=== PATIENT | female | born 2000 | race Caucasian/White ===

== ENCOUNTER 2022-10-23 05:45 | Inpatient (IN) | payer BC ==
[2022-10-23] MEDS ORDERED: METHYLERGONOVINE 0.2 MG/ML 1 ML AMP IM PRN (06:01)
[2022-10-23] MEDS ORDERED: CARBOPROST TROMETHAMINE 250 MCG/ML 1 ML AMP IM PRN (06:01)
[2022-10-23] MEDS ORDERED: TRANEXAMIC ACID IN NACL,ISO-OS 1,000 MG in EMPTY BAG 1 BAG IV PRN (06:01)
[2022-10-23] MEDS ORDERED: LIDOCAINE 0.5% (PF) 5 MG/ML (50 ML SDV) SQ PRN (06:01)
[2022-10-23] MEDS ORDERED: miSOPROStoL 200 MCG TAB PO PRN (06:01)
[2022-10-23] MEDS ORDERED: OXYTOCIN 10 UNIT/ML 1 ML VIAL IM PRN (06:01)
[2022-10-23] MEDS ORDERED: TERBUTALINE 1 MG/ML VIAL SQ PRN (06:01)
[2022-10-23] MEDS ORDERED: OXYTOCIN 30 UNITS/500 ML NS 30 UNIT in SALINE 1 500ML.BAG IV SCH ×2 (06:01→12:03)
[2022-10-23 06:06] VITALS: RESP 16
[2022-10-23 06:10] LABS: Basophils % (A) 0 %; Eosinophils # (A) 0.2 k/uL (0-0.7); Eosinophils % (A) 2 %; Lymphocytes # (A) 1.7 k/uL (1.0-4.8); Lymphocytes % (A) 18 %; MCH 30.7 pg (25.0-35.0); MCHC 34.5 g/dL (31.0-37.0); MCV 88.9 fL (80.0-100.0); Mean Platelet Volume 8.7; Monocytes # (A) 0.4 k/uL (0-1.0); Monocytes % (A) 4 %; Neutrophils # (A) 6.8 k/uL (1.3-7.7); Neutrophils % (A) 73 %; Platelet Count 255 k/uL (150-450); RBC 3.27 m/uL (3.80-5.40); RDW 13.6 % (11.5-15.5); WBC 9.3 k/uL (3.8-10.6)
[2022-10-23] MEDS: LACTATED RINGERS 1,000 ML IV SCH ×3 (06:22→11:04)
--- NOTE | 2022-10-23 06:35 | P.HPOB ---
History of Present Illness H&P Date: 10/23/22 Chief Complaint: Requested induction of labor. This patient is a pleasant 22-year-old 3 para 2 female estimated date of confinement 10/26/2022 estimated gestational age 39-4/7 weeks who presents to labor and delivery for requested induction of labor. Patient's is complicated by earlier ultrasound that showed a possible cystic hygroma however she was referred to maternal- medicine and anatomy and genetic testing was normal. Patient also had a concern by MFM of a possible VSD are heard given she had a cardiac echo which was normal. otherwise has been uncomplicated. She is uncomfortable is now requesting induction of labor. Review of Systems Genitourinary: Reports Menstruation: Reports as per HPI Past Medical History Past Medical History: No Reported History Additional Past Medical History / Comment(s): Patient's had 2 previous vaginal deliveries boy and a girl. History of Any Multi-Drug Resistant Organisms: None Reported Past Surgical History: No Surgical Hx Reported Past Anesthesia/Blood Transfusion Reactions: No Reported Reaction Past Psychological History: No Psychological Hx Reported Smoking Status: Never smoker Past Alcohol Use History: None Reported Past Drug Use History: None Reported Medications and Allergies Allergies Allergy/AdvReac Type Severity Reaction Status Date / Time No Known Allergies Allergy Verified 10/23/22 06:00 Exam Vital Signs Temp Pulse Resp BP Pulse Ox 10/23/22 06:00 97.2 F L 113 H 16 117/70 98 Intake and Output 10/22/22 10/22/22 10/23/22 14:59 22:59 06:59 Other: Weight 76.204 kg - OBG Physical Exam Abdomen: bowel sounds normal, no diffuse tenderness, no bruit present, no gua rding noted, no hepatomegaly, no splenomegaly, no mass Vulva: both: normal Cervix: no lesion (Cervix is 3 and thick.), no discharge Uterus: enlarged (Fundal height consistent with gestational age) Results labs show she is O positive, rubella immune, RPR is nonreactive hepatitis B and C were negative, HIV is nonreactive, Glucola was normal, group B strep was negative, level III ultrasound including cardiac echo was normal. Result Diagrams: 10/23/22 06:01 Abnormal Lab Results - Last 24 Hours (Table) 10/23/22 Range/Units 06:01 RBC 3.27 L (3.80-5.40) m/uL Hgb 10.0 L (11.4-16.0) gm/dL Hct 29.0 L (34.0-46.0) % Assessment and Plan Assessment: This is a pleasant 22-year-old 3 para 2 female 39-4/7 weeks gestation who presents to labor and delivery for requested induction of labor. Plan is induction of labor with Pitocin per protocol and anticipate vaginal delivery. (1) 39 weeks gestation of Current Visit: Yes Status: Acute Code(s): Z3A.39 - 39 WEEKS GESTATION OF SNOMED Code(s): 98426452 (2) Elective induction of labor planned Current Visit: Yes Status: Acute Code(s): [id number] - SNOMED Code(s): 600817379
[2022-10-23] MEDS ORDERED: SODIUM CHLORIDE 0.9% 100 ML BAG ONE (08:49)
[2022-10-23] MEDS ORDERED: fentaNYL (PF) 50 MCG/ML 5 ML AMP ONE (08:49)
[2022-10-23] MEDS ORDERED: ROPIVACAINE 5 MG/ML 20 ML AMPULE ONE (08:49)
[2022-10-23] MEDS ORDERED: ZOLPIDEM 5 MG TAB PO PRN (12:03)
[2022-10-23] MEDS ORDERED: diphenhydrAMINE 25 MG CAP PO PRN (12:03)
[2022-10-23] MEDS ORDERED: HYDROCORTISONE 2.5% RECTAL CREAM 30 GM TUBE RECTAL PRN (12:03)
[2022-10-23] MEDS ORDERED: BENZOCAINE/MENTHOL SPRAY 1 GM/SPRAY AEROSOL TOPICAL PRN (12:03)
[2022-10-23] MEDS ORDERED: diphenhydrAMINE 50 MG/ML 1 ML VIAL IVP PRN (12:03)
[2022-10-23] MEDS ORDERED: LANOLIN CREAM 5 GM TUBE TOPICAL PRN (12:03)
[2022-10-23] MEDS ORDERED: SIMETHICONE 80 MG CHEWABLE PO PRN (12:03)
[2022-10-23] MEDS ORDERED: bisacodyL 10 MG SUPP RECTAL PRN (12:03)
--- NOTE | 2022-10-23 12:09 | P.PROBDLV ---
Vaginal Delivery Note - . Vaginal Delivery Note: Normal vaginal delivery viable female Apgars 9 and 9 delivery time 1151 hrs. Please see dictated H&P for intimate details of this patient's admission. Brief summary this pleasant 22-year-old 3 para 2 female 39-4/7 weeks gestation admitted to labor and delivery for requested elective induction of labor. On admission patient is 3 cm dilated has artificial rupture membranes for clear fluid. Patient's labor is induced with Pitocin per protocol. She does request an epidural and gets some good relief but then is some one-sided pain and therefore this was replaced. With her second epidural she gets excellent relief. Patient quickly progresses to complete. Patient pushes approximate 1 time and pushes the head over the intact perineum. Mouth and nares are bulb suctioned. had a straight occiput anterior presentation. There is no evidence of a nuchal cord. With gentle downward traction, we then have deliver the anterior posterior shoulder and rest this infant's body. This is a vigorous viable female infant Apgars 9 and 9 delivery time was 1151 hrs. Infant has spontaneous respiration and good cry and grossly appears normal. is late on the mother's abdomen. After the cortisone pulsating, the umbilical cord is doubly clamped and cut appears to be trivascular. The placenta is then spontaneously delivered intact. The estimated blood loss 150 mL. There are no lacerations no repair. All counts correct 3. Infant and mother stable in delivery room.
[2022-10-23] MEDS: IBUPROFEN 600 MG TAB PO PRN ×2 (13:21→20:18)
[2022-10-23] MEDS: SENNOSIDES-DOCUSATE SODIUM 1 EACH TAB PO SCH ×2 (13:30→20:14)
[2022-10-23] MEDS: ACETAMINOPHEN TAB 325 MG TAB PO PRN (15:58)
[2022-10-24] MEDS: ACETAMINOPHEN TAB 325 MG TAB PO PRN ×2 (00:59→08:36)
[2022-10-24] MEDS: IBUPROFEN 600 MG TAB PO PRN ×2 (04:08→11:50)
[2022-10-24] MEDS: SENNOSIDES-DOCUSATE SODIUM 1 EACH TAB PO SCH (08:36)
[2022-10-24 08:42] VITALS: BP 106/63; PULSE 98; TEMP 98
[2022-10-24 08:46] LABS: Basophils % (A) 0 %; Eosinophils # (A) 0.3 k/uL (0-0.7); Eosinophils % (A) 3 %; HCT 27.9 % (34.0-46.0); HGB 9.3 gm/dL (11.4-16.0); Lymphocytes # (A) 1.5 k/uL (1.0-4.8); Lymphocytes % (A) 16 %; MCH 30.5 pg (25.0-35.0); MCHC 33.4 g/dL (31.0-37.0); MCV 91.4 fL (80.0-100.0); Mean Platelet Volume 9.4; Monocytes # (A) 0.3 k/uL (0-1.0); Monocytes % (A) 4 %; Neutrophils # (A) 6.9 k/uL (1.3-7.7); Neutrophils % (A) 75 %; Platelet Count 205 k/uL (150-450); RBC 3.05 m/uL (3.80-5.40); RDW 13.8 % (11.5-15.5); WBC 9.2 k/uL (3.8-10.6)
--- NOTE | 2022-10-24 11:07 | P.DS ---
Providers Date of admission: 10/23/22 05:45 Attending physician: Errol Blankenship Primary care physician: Stated None Hospital Course: This is a 22-year-old female 3 para 2 at 39-4/7 weeks who presented for induction of labor by Dr. Blankenship. Please see history and physical for details of patient's admission. She delivered a viable female on 10/23/2022 with scores of 8 at 1 minute and 9 at 5 minutes and infant weight of 7 lbs. 9 oz. Her course has been uncomplicated. She is bottle feeding. Pain is fairly well controlled. Lochia is decreasing. Vital signs are stable. Abdomen is soft with fundus firm and nontender. Extremities show negative Homans. Impression is status post vaginal delivery day #1. Plan is to discharge home today. Routine instructions are given. She is advised to follow up with Dr. Blankenship in 6 weeks. She is advised to call the office if she has any further questions or concerns prior to her appointment time. She will be given a prescription for ibuprofen. Procedures: Oxytocin induction of labor Spontaneous vaginal delivery of a viable female infant on 10/23/2022 Patient Condition at Discharge: Stable Plan - Discharge Summary New Discharge Prescriptions: New Ibuprofen [Motrin] 600 mg PO Q6HR PRN #60 tab PRN Reason: Mild Pain (Scale 1 To 3) Acetaminophen Tab [Tylenol] 650 mg PO Q4HR PRN tab PRN Reason: Mild Pain Or Fever >= 100.5 Discharge Medication List Acetaminophen Tab [Tylenol] 650 mg PO Q4HR PRN tab 10/24/22 [Rx] Ibuprofen [Motrin] 600 mg PO Q6HR PRN #60 tab 10/24/22 [Rx] Follow up Appointment(s)/Referral(s): Errol Blankenship MD [STAFF PHYSICIAN] - 12/04/22 10:30 am Activity/Diet/Wound Care/Special Instructions: Instructions 1. Do not begin any exercise program for 3 weeks. 2. Do not resume sexual relations for 3 weeks or longer if uncomfortable. 3. You may take tub baths or showers at any time. 4. You may use tampons if desired after 3 weeks. 5. Keep the area of episiotomy (stitches) clean and dry. 6. If you are not nursing, wear a good fitting, supportive bra during the day and limit fluid intake for at least 1 week to prevent breast engorgement. 7. Call the office, [phone], within the next week to make appointment for your 6 week checkup if it has not already been made. 8. Report any of the following occurrences to the doctor promptly: a. Heavy, excessive bleeding b. Chills, fever c. Burning or frequency of urination d. Pain or redness and breasts if nursing e. Increasing pain or swelling in episiotomy (stitches). In addition to the above instructions, the following additional should be followed: 1. No heavy lifting or straining (exercising) until after 6 week checkup. 2. Keep abdominal incision clean and dry: You may wear a dressing if more comfortable. 3. Make office appointment for 10 days after going home or as instructed by her doctor. Discharge Disposition: HOME SELF-CARE
== END 2022-10-24 13:10 | disposition home or self-care (01) | DRG 807 ==
LOC: 4FBP 05:45
PROVIDERS: ADMIT Obstetrics & Gynecology; ATTEND Obstetrics & Gynecology
PROC: 3E033VJ Introduction of Other Hormone into Peripheral Vein, Percutaneous Approach (ICD-10-PCS; principal; 2022-10-23)
PROC: 10907ZC Drainage of Amniotic Fluid, Therapeutic from Products of Conception, Via Natural or Artificial Opening (ICD-10-PCS; principal; 2022-10-23)
PROC: 10E0XZZ Delivery of Products of Conception, External Approach (ICD-10-PCS; principal; 2022-10-23)
DX: O80 Encounter for full-term uncomplicated delivery (principal); Z28.310 Unvaccinated for COVID-19; Z3A.39 39 weeks gestation of pregnancy; Z37.0 Single live birth
CPT/HCPCS: 85025; 86850; 86900; 86901